=== PATIENT | female | born 1955 | race African-American/Black ===

== ENCOUNTER → 2021-01-19 07:23 | Day surgery (SDC) | payer MEDICARE, BC ==
[2010-03-04 15:01] VITALS: BMI 54.5
== END | disposition home or self-care (01) ==
LOC: D.RAD 07:23
PROVIDERS: ATTEND Psychiatry & Neurology Neurology
DX: G43.909 Migraine, unspecified, not intractable, without status migrainosus (principal); Z53.8 Procedure and treatment not carried out for other reasons